=== PATIENT | female | born 1950 | race Caucasian/White ===

== ENCOUNTER → 2020-05-10 08:46 | Outpatient (CLI) | payer MEDICARE, BC, SELFPAY ==
--- NOTE | 2020-05-10 08:54 | XR_ITS ---
PROCEDURE: XR ANKLE LT MIN 3V CLINICAL INDICATION: LT ANKLE PAIN COMPARISON: No exams were available for comparison FINDINGS: There is a nondisplaced avulsion fracture at the tip of the lateral malleolus. Fracture line is transverse. There is overlying soft tissue swelling. IMPRESSION: Nondisplaced transverse fracture tip of lateral malleolus with soft tissue swelling Dictated by: Darell Calzada MD 05/10/2020 16:36 Darell Calzada MD in [place] 05/10/2020 16:36
== END ==
PROVIDERS: PCP Family Medicine; Visit Provider Family Medicine
DX: M25.572 Pain in left ankle and joints of left foot (principal)
CPT/HCPCS: 73610

== ENCOUNTER → 2020-07-03 14:54 | Outpatient (CLI) | payer MEDICARE, BC, SELFPAY ==
--- NOTE | 2020-07-03 15:00 | XR_ITS ---
PROCEDURE: XR ANKLE LT MIN 3V CLINICAL INDICATION: CLOSED NONDISPLACED FRACTURE Follow-up fracture COMPARISON: CR XR ANKLE LT MIN 3V from 05/10/2020 FINDINGS: There is a nondisplaced fracture involving the tip the lateral malleolus. Fracture line is somewhat less distinct compared to the previous exam indicating healing. Incidental note is made of calcaneal spur and calcification along the Achilles insertion. In addition, there is a nondisplaced fracture involving the base of the 5th metatarsal. This area was not visible on the previous exam IMPRESSION: 1. Healing fracture involving the tip of the lateral malleolus. 2. Nondisplaced fracture at the base of the 5th metatarsal. This area was not visible on the previous ankle film. Dictated by: Darell Calzada MD 07/03/2020 15:19 Darell Calzada MD in [place] 07/03/2020 15:19
== END ==
PROVIDERS: PCP Family Medicine; Visit Provider Family Medicine
DX: S82.65XD Nondisplaced fracture of lateral malleolus of left fibula, subsequent encounter for closed fracture with routine healing (principal)
CPT/HCPCS: 73610